=== PATIENT | male | born 1970 | race Caucasian/White ===

== ENCOUNTER 2021-01-23 08:49 | Observation (INO) | payer BC ==
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
[2021-01-23] MEDS ORDERED: Lactated Ringers 1,000 ML IV SCH ×2 (10:00→12:45)
[2021-01-23] MEDS ORDERED: Propofol 200 MG/20 ML SDV ONE ×5 (10:46→11:37)
--- NOTE | 2021-01-23 12:17 | PCM.POSTAN ---
POST ANESTHESIA ASSESSMENT - MENTAL STATUS Mental Status: Alert, Oriented - VITAL SIGNS Vital Signs: Last Vital Signs Temp 98.6 F 01/23/21 11:54 Pulse 127 H 01/23/21 12:05 Resp 14 01/23/21 12:05 BP 88/62 L 01/23/21 12:05 Pulse Ox 95 01/23/21 12:05 - RESPIRATORY Respiratory Status: Respiratory Rate WNL, Airway Patent, O2 Saturation Stable - CARDIOVASCULAR CV Status: Blood Pressure Stable - GASTROINTESTINAL GI Status: No Symptoms - POST OP HYDRATION Hydration Status: Adequate & Stable
--- NOTE | 2021-01-23 12:23 | PCM.OPNOTE ---
- General Post-Op/Procedure Note Date of Surgery/Procedure: 01/23/21 Operative Procedure(s): Colonoscopy with polypectomies and biopsies Findings: Poor bowel prep Colon polyps rectal mass Dictation number [id number] Pre Op Diagnosis: Constipation and blood when he wipes Post-Op Diagnosis: Colon polyps. rectal mass Anesthesia Technique: MAC Primary Surgeon: Felice Ji Pathology: Colon polyps Rectal mass Complications: None Condition: Good Free Text/Narrative:: Intake & Output 01/22/21 01/23/21 01/23/21 22:59 06:59 14:59 Intake Total 1400 Balance 1400 PT with A fib during the case
--- NOTE | 2021-01-23 12:30 | PCM.POSTAN ---
POST ANESTHESIA ASSESSMENT - MENTAL STATUS Mental Status: Alert, Oriented - VITAL SIGNS Vital Signs: Last Vital Signs Temp 37 C 01/23/21 11:54 Pulse 145 H 01/23/21 12:10 Resp 17 01/23/21 12:10 BP 99/60 01/23/21 12:10 Pulse Ox 95 01/23/21 12:10 - RESPIRATORY Respiratory Status: Respiratory Rate WNL, Airway Patent, O2 Saturation Stable - CARDIOVASCULAR CV Status: Blood Pressure Stable (Patient is in new onset A-Fib) - GASTROINTESTINAL GI Status: No Symptoms - POST OP HYDRATION Hydration Status: Adequate & Stable
--- NOTE | 2021-01-23 12:37 | PCM.SN.2 ---
- Free Text/Narrative Note: Patient connected to ECG in or and appeared to have sinus tachycardia which correlated with patients extreme anxiety for procedure and possible diagnosis. However, as rate slowed slightly with sedation rhythm appeared to be ST with Frequent PAC or atrial fib/flutter. EKG in recovery confirmed atrial fib for which patient was unaware. Discussed care with Dr. Almonte who recommends having hospitalist see patient.
--- NOTE | 2021-01-23 13:20 | PCM.SN.2 ---
- Free Text/Narrative Note: Case discussed with Dr. Ryan Ji who states he will admit patient to hospital with telemetry (in ICU) for rate control and management of new onset A- Fib.
[2021-01-23 15:51] LABS: BLOOD UREA NITROGEN,BUN 8 mg/dL (7.0-18.0); CARBON DIOXIDE,CO2 24.9 mmol/L (21.0-32.0); CHLORIDE,CL 103 mmol/L (98-107); GLUCOSE RANDOM 136 mg/dL (74-106); POTASSIUM,K 3.6 mmol/L (3.5-5.1); SODIUM,NA 138 mmol/L (136-148)
--- NOTE | 2021-01-23 15:57 | CR ---
INDICATION: new onset A-Fib. 23-nov-2020 TECHNIQUE: Chest 1 view. COMPARISON: 11/23/20 FINDINGS: Cardiovascular and mediastinum: Heart size and vasculature are normal in caliber and appearance. Mediastinum is within normal limits. Lungs and pleural space: Lungs are clear. No sign of infiltrate or mass. No sign of pleural effusion. No pneumothorax. Bones and soft tissues: No significant findings. IMPRESSION: Unremarkable chest. Dictated by: Bernardino Mercer MD @ 01/23/2021 15:54:45 (Electronically Signed)
--- NOTE | 2021-01-23 16:38 | OR ---
SURGEON: CAROL MCKINNEY MD DATE OF PROCEDURE: 01/23/2021 PREOPERATIVE DIAGNOSES: Constipation and occasional bloody wipes. POSTOPERATIVE DIAGNOSES: 1. Colon polyps. 2. Nearly circumferential rectal mass, likely cancerous. PROCEDURES PERFORMED: 1. Colonoscopy. 2. Hot snare polypectomy. 3. Cold biopsy polypectomy. PRIMARY SURGEON: Carol Mckinney MD ANESTHESIA: General. EXTENT OF THE COLONOSCOPY: To the cecum. BOWEL PREP: Poor. REASON FOR PROCEDURE: Patient is a pleasant 50-year-old gentleman who has never had a colonoscopy before. He says occasionally he has some blood when he wipes. He denies any recent changes in his bowel habits, although he says for the last year to year and a half, he has had issue with constipation. He says he will not have a bowel movement for several days, then have five or six bowel movements that day, and then go another three or four days without having a bowel movement. He says that his paternal aunt and he thinks his paternal grandfather had colon cancer. PROCEDURE IN DETAIL: Physical examination was performed. The major risks and benefits associated with the procedure were explained to the patient in detail. The patient verbalized understanding and agreement of the same. The patient was then connected to the appropriate monitoring devices and IV started. EKG, pulse, pulse oximetry, blood pressure, and capnography were monitored throughout the entire procedure. Continuous oxygen and sedation were provided by the anesthesiologist. The patient was placed in left lateral decubitus position. Sedation was began. After adequate sedation was achieved, a digital rectal exam was performed. The patient did have what felt like a hard mass right past the anal verge. This seemed to be more on the prostate side. Now, Olympus colonoscope was inserted into the rectum. Right a way we came up to a nearly circumferential mass. I was able to pass it. The scope was continued to advance to the cecum. The patient did have a somewhat poor bowel prep, still had a quite a bit of retained stool. I did take a picture of the cecal cap. Scope was then slowly withdrawn in a somewhat circular fashion looking at the color, texture, anatomy, and integrity of the mucosa from the cecum to the anal canal. Again, I spent quite a bit of time with suction irrigation, trying to get the best views of the mucosa, however, due to the poor bowel prep even with copious irrigation, i could have missed a smaller to medium sized polyp or lesion. Patient did have a small diminutive polyp in the ascending colon. This was removed with cold biopsy polypectomy. There was good hemostasis. It was completely removed. Scope was continued to be withdrawn. The patient had another polyp in the transverse colon right before the splenic flexure at about 90 cm. This was removed with hot snare polypectomy. The mucosal defect was closed with a Resolution clip. Scope was continued to be withdrawn. The patient again had a nearly circumferential lesion in the rectum. It appeared to begin about 2 to 3 cm in from the anal verge and extended up to about 15 cm. I did do multiple biopsies of this area. Scope was then removed and procedure was terminated. ENDOSCOPIC DIAGNOSES: 1. Colon polyps. 2. Nearly circumferential rectal mass, likely cancerous. RECOMMENDATIONS: I did go over with the patient and his the findings. I went over that very likely this is cancer, but we would wait for pathology official results. I did go over that we will need to do some further imaging, and he would be refer to Colorectal Surgery. I answered all of the patient's questions. JASON YOO /[id number] SCOTT
[2021-01-23] MEDS ORDERED: Magnesium Sulfate/Water 2 GM/50 ML Premix Bag IV ONE (17:08)
[2021-01-23] MEDS ORDERED: Potassium Chloride 20 MEQ Tab.ER PO ONE (17:08)
[2021-01-23] MEDS ORDERED: Magnesium Sulfate/Water 2 GM in Premix Bag 1 BAG IV ONE (17:15)
[2021-01-23] MEDS ORDERED: Glucagon,Human Recombinant 1 MG Vial IM PRN (17:17)
[2021-01-23] MEDS ORDERED: 50% Dextrose in Water 50 ML Syringe IVPUSH PRN (17:17)
[2021-01-23] MEDS ORDERED: Sodium Chloride 0.9% 1,000 ML IV ONE (17:40)
[2021-01-23] MEDS ORDERED: Diltiazem 25 MG/5 ML SDV IVPUSH PRN (17:40)
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
[2021-01-23] MEDS ORDERED: Digoxin 500 MCG/2 ML Amp IVPUSH ONE (17:48)
[2021-01-23] MEDS: Rosuvastatin 10 MG Tab PO SCH (20:03)
[2021-01-24 07:09] LABS: BLOOD UREA NITROGEN,BUN 9 mg/dL (7.0-18.0); CARBON DIOXIDE,CO2 24.7 mmol/L (21.0-32.0); CHLORIDE,CL 107 mmol/L (98-107); GLUCOSE RANDOM 105 mg/dL (74-106); POTASSIUM,K 4.1 mmol/L (3.5-5.1); SODIUM,NA 141 mmol/L (136-148)
--- NOTE | 2021-01-24 07:20 | PN ---
The patient did tolerate his colonoscopy. During the case, the patient was noted to have some new onset atrial fib. He was tachy into the 130s and 140s. Anesthesia did consult Medicine Services. The hospitalist did want to admit the patient to the ICU for rate control of his A Fib. I did see patient in ICU, he is doing well. He has no complaints of procedure. Again, I went over with the patient that he did have a rectal mass. I went over he can see me next week to go over the pathology and to discuss the treatment of it. I answered his questions about the procedure. Cares of patient per Medicine Team for his atrial fibrillation. JASON / FREDO /[id number] [email or web address]
[2021-01-24] MEDS: Insulin Aspart 100 Units/ML 3 ML Pen SUBCUT SCH ×3 (08:02→17:41)
[2021-01-24] MEDS ORDERED: Verapamil 240 MG Tab.ER PO SCH (09:45)
--- NOTE | 2021-01-24 12:43 | PCM.PN ---
- General Info Date of Service: 01/24/21 - Review of Systems Systems Review Comment:: denies any blood in stool, no palpitations, no chest pain - Patient Data Vitals - Most Recent: Last Vital Signs Temp 37.3 C 01/24/21 07:00 Pulse 107 H 01/24/21 11:00 Resp 19 01/24/21 11:00 BP 128/79 01/24/21 11:00 Pulse Ox 92 L 01/24/21 11:00 Weight - Most Recent: 126.099 kg I&O - Last 24 Hours: Intake & Output 01/23/21 01/24/21 01/24/21 22:59 06:59 14:59 Intake Total 400 Output Total 525 Balance -125 Lab Results Last 24 Hours: Laboratory Results - last 24 hr 01/23/21 01/23/21 01/23/21 Range/Units 15:22 15:22 15:22 WBC 8.43 (4.0-11.0) K/uL RBC 4.59 (4.50-5.90) M/uL Hgb 14.7 (13.0-17.0) g/dL Hct 42.7 (38.0-50.0) % MCV 93.0 (80.0-98.0) fL MCH 32.0 (27.0-32.0) pg MCHC 34.4 (31.0-37.0) g/dL RDW Std Deviation 44.8 (28.0-62.0) fl RDW Coeff of Mahi 13 (11.0-15.0) % Plt Count 269 (150-400) K/uL MPV 10.00 (7.40-12.00) fL Neut % (Auto) 56.2 (48.0-80.0) % Lymph % (Auto) 32.7 (16.0-40.0) % [place] % (Auto) 8.7 (0.0-15.0) % Eos % (Auto) 2.0 (0.0-7.0) % Baso % (Auto) 0.4 (0.0-1.5) % Neut # (Auto) 4.7 (1.4-5.7) K/uL Lymph # (Auto) 2.8 H (0.6-2.4) K/uL [place] # (Auto) 0.7 (0.0-0.8) K/uL Eos # (Auto) 0.2 (0.0-0.7) K/uL Baso # (Auto) 0.0 (0.0-0.1) K/uL Nucleated RBC % 0.0 /100WBC Nucleated RBCs # 0 K/uL INR 0.95 Sodium 138 (136-148) mmol/L Potassium 3.6 (3.5-5.1) mmol/L Chloride 103 (98-107) mmol/L Carbon Dioxide 24.9 (21.0-32.0) mmol/L BUN 8 (7.0-18.0) mg/dL Creatinine 0.9 (0.8-1.3) mg/dL Est Cr Clr Drug Dosing 119.22 mL/min Estimated GFR (MDRD) > 60.0 ml/min Glucose 136 H (74-106) mg/dL POC Glucose (70-99) mg/dL Calcium 9.0 (8.5-10.1) mg/dL Magnesium 1.7 L (1.8-2.4) mg/dL Total Bilirubin 0.3 (0.2-1.0) mg/dL AST 24 (15-37) IU/L ALT 37 (14-63) IU/L Alkaline Phosphatase 61 (46-116) U/L Total Protein 7.0 (6.4-8.2) g/dL Albumin 3.3 L (3.4-5.0) g/dL Globulin 3.7 (2.6-4.0) g/dL Albumin/Globulin Ratio 0.9 (0.9-1.6) 01/24/21 01/24/21 01/24/21 Range/Units 05:52 05:52 07:49 WBC 7.45 (4.0-11.0) K/uL RBC 4.46 L (4.50-5.90) M/uL Hgb 14.1 (13.0-17.0) g/dL Hct 42.2 (38.0-50.0) % MCV 94.6 (80.0-98.0) fL MCH 31.6 (27.0-32.0) pg MCHC 33.4 (31.0-37.0) g/dL RDW Std Deviation 46.7 (28.0-62.0) fl RDW Coeff of Mahi 14 (11.0-15.0) % Plt Count 253 (150-400) K/uL MPV 10.60 (7.40-12.00) fL Neut % (Auto) 52.7 (48.0-80.0) % Lymph % (Auto) 30.3 (16.0-40.0) % [place] % (Auto) 12.2 (0.0-15.0) % Eos % (Auto) 4.3 (0.0-7.0) % Baso % (Auto) 0.5 (0.0-1.5) % Neut # (Auto) 3.9 (1.4-5.7) K/uL Lymph # (Auto) 2.3 (0.6-2.4) K/uL [place] # (Auto) 0.9 H (0.0-0.8) K/uL Eos # (Auto) 0.3 (0.0-0.7) K/uL Baso # (Auto) 0.0 (0.0-0.1) K/uL Nucleated RBC % 0.0 /100WBC Nucleated RBCs # 0 K/uL INR Sodium 141 (136-148) mmol/L Potassium 4.1 (3.5-5.1) mmol/L Chloride 107 (98-107) mmol/L Carbon Dioxide 24.7 (21.0-32.0) mmol/L BUN 9 (7.0-18.0) mg/dL Creatinine 0.7 L (0.8-1.3) mg/dL Est Cr Clr Drug Dosing 153.28 mL/min Estimated GFR (MDRD) > 60.0 ml/min Glucose 105 (74-106) mg/dL POC Glucose 115 H (70-99) mg/dL Calcium 8.5 (8.5-10.1) mg/dL Magnesium 2.2 (1.8-2.4) mg/dL Total Bilirubin (0.2-1.0) mg/dL AST (15-37) IU/L ALT (14-63) IU/L Alkaline Phosphatase (46-116) U/L Total Protein (6.4-8.2) g/dL Albumin (3.4-5.0) g/dL Globulin (2.6-4.0) g/dL Albumin/Globulin Ratio (0.9-1.6) 01/24/ Range/Units 12:23 WBC (4.0-11.0) K/uL RBC (4.50-5.90) M/uL Hgb (13.0-17.0) g/dL Hct (38.0-50.0) % MCV (80.0-98.0) fL MCH (27.0-32.0) pg MCHC (31.0-37.0) g/dL RDW Std Deviation (28.0-62.0) fl RDW Coeff of Mahi (11.0-15.0) % Plt Count (150-400) K/uL MPV (7.40-12.00) fL Neut % (Auto) (48.0-80.0) % Lymph % (Auto) (16.0-40.0) % [place] % (Auto) (0.0-15.0) % Eos % (Auto) (0.0-7.0) % Baso % (Auto) (0.0-1.5) % Neut # (Auto) (1.4-5.7) K/uL Lymph # (Auto) (0.6-2.4) K/uL [place] # (Auto) (0.0-0.8) K/uL Eos # (Auto) (0.0-0.7) K/uL Baso # (Auto) (0.0-0.1) K/uL Nucleated RBC % /100WBC Nucleated RBCs # K/uL INR Sodium (136-148) mmol/L Potassium (3.5-5.1) mmol/L Chloride (98-107) mmol/L Carbon Dioxide (21.0-32.0) mmol/L BUN (7.0-18.0) mg/dL Creatinine (0.8-1.3) mg/dL Est Cr Clr Drug Dosing mL/min Estimated GFR (MDRD) ml/min Glucose (74-106) mg/dL POC Glucose 105 H (70-99) mg/dL Calcium (8.5-10.1) mg/dL Magnesium (1.8-2.4) mg/dL Total Bilirubin (0.2-1.0) mg/dL AST (15-37) IU/L ALT (14-63) IU/L Alkaline Phosphatase (46-116) U/L Total Protein (6.4-8.2) g/dL Albumin (3.4-5.0) g/dL Globulin (2.6-4.0) g/dL Albumin/Globulin Ratio (0.9-1.6) Med Orders - Current: Current Medications Apixaban (Apixaban 5 Mg Tab) 5 mg PO Q12H [facility] Dextrose/Water (50% Dextrose In Water 50 Ml Syringe) 50 ml IVPUSH ASDIRECTED PRN PRN Reason: Hypoglycemia Diltiazem HCl (Diltiazem 25 Mg/5 Ml Sdv) 10 mg IVPUSH Q3H PRN PRN Reason: HR above 100 Docusate Sodium (Docusate Sodium 100 Mg Cap) 100 mg PO DAILY TERRY Glucagon (Glucagon,Human Recombinant 1 Mg Vial) 1 mg IM ASDIRECTED PRN PRN Reason: Hypoglycemia Lactated Ringer's (Ringers, Lactated) 1,000 mls @ 125 mls/hr IV ASDIRECTED TERRY Last Admin: 01/23/21 09:20 Dose: 125 mls/hr Documented by: Insulin Aspart (Insulin Aspart 100 Units/Ml 3 Ml Pen) 0 unit SUBCUT TIDAC [facility]; Protocol Last Admin: 01/24/21 12:29 Dose: Not Given Documented by: Rosuvastatin Calcium (Rosuvastatin 10 Mg Tab) 20 mg PO BEDTIME [facility] Last Admin: 01/23/21 20:03 Dose: 20 mg Documented by: Verapamil HCl (Verapamil 40 Mg Tab) 80 mg PO Q8H TERRY Discontinued Medications Digoxin (Digoxin 500 Mcg/2 Ml Amp) 250 mcg IVPUSH ONETIME ONE Stop: 01/23/21 17:49 Last Admin: 01/23/21 17:56 Dose: 250 mcg Documented by: Magnesium Sulfate 2 gm/ Premix 50 mls @ 25 mls/hr IV ONETIME ONE Stop: 01/23/21 19:14 Last Admin: 01/23/21 17:42 Dose: 25 mls/hr Documented by: Sodium Chloride (Normal Saline) 1,000 mls @ 999 mls/hr IV .Bolus ONE Stop: 01/23/21 18:40 Last Admin: 01/23/21 17:51 Dose: 999 mls/hr Documented by: Potassium Chloride (Potassium Chloride 20 Meq Tab.Er) 40 meq PO ONETIME ONE Stop: 01/23/21 17:09 Last Admin: 01/23/21 17:42 Dose: 40 meq Documented by: Propofol (Propofol 200 Mg/20 Ml Sdv) Confirm Administered Dose 200 mg .ROUTE .STK-MED ONE Stop: 01/23/21 10:47 Propofol (Propofol 200 Mg/20 Ml Sdv) Confirm Administered Dose 200 mg .ROUTE .STK-MED ONE Stop: 01/23/21 10:47 Propofol (Propofol 200 Mg/20 Ml Sdv) Confirm Administered Dose 200 mg .ROUTE .STK-MED ONE Stop: 01/23/21 11:09 Propofol (Propofol 200 Mg/20 Ml Sdv) Confirm Administered Dose 200 mg .ROUTE .STK-MED ONE Stop: 01/23/21 11:16 Propofol (Propofol 200 Mg/20 Ml Sdv) Confirm Administered Dose 400 mg .ROUTE .STK-MED ONE Stop: 01/23/21 11:38 Verapamil HCl (Verapamil 240 Mg Tab.Er) 120 mg PO DAILY TERRY Verapamil HCl (Verapamil 40 Mg Tab) 40 mg PO Q8H TERRY Last Admin: 01/24/21 10:09 Dose: 40 mg Documented by: Verapamil HCl (Verapamil 40 Mg Tab) 40 mg PO ONETIME ONE Stop: 01/24/21 12:20 Last Admin: 01/24/21 12:31 Dose: 40 mg Documented by: - Exam General: Alert, Oriented Neck: Supple Lungs: Clear to Auscultation, Normal Respiratory Effort Cardiovascular: Irregular Rhythm, Tachycardia GI/Abdominal Exam: Soft, Non-Tender, No Distention Extremities: Non-Tender, No Pedal Edema Skin: Warm, Dry, Intact Neurological: No New Focal Deficit - Patient Data Lab Results Last 24 hrs: Laboratory Results - last 24 hr 01/23/21 01/23/21 01/23/21 Range/Units 15:22 15:22 15:22 WBC 8.43 (4.0-11.0) K/uL RBC 4.59 (4.50-5.90) M/uL Hgb 14.7 (13.0-17.0) g/dL Hct 42.7 (38.0-50.0) % MCV 93.0 (80.0-98.0) fL MCH 32.0 (27.0-32.0) pg MCHC 34.4 (31.0-37.0) g/dL RDW Std Deviation 44.8 (28.0-62.0) fl RDW Coeff of Mahi 13 (11.0-15.0) % Plt Count 269 (150-400) K/uL MPV 10.00 (7.40-12.00) fL Neut % (Auto) 56.2 (48.0-80.0) % Lymph % (Auto) 32.7 (16.0-40.0) % [place] % (Auto) 8.7 (0.0-15.0) % Eos % (Auto) 2.0 (0.0-7.0) % Baso % (Auto) 0.4 (0.0-1.5) % Neut # (Auto) 4.7 (1.4-5.7) K/uL Lymph # (Auto) 2.8 H (0.6-2.4) K/uL [place] # (Auto) 0.7 (0.0-0.8) K/uL Eos # (Auto) 0.2 (0.0-0.7) K/uL Baso # (Auto) 0.0 (0.0-0.1) K/uL Nucleated RBC % 0.0 /100WBC Nucleated RBCs # 0 K/uL INR 0.95 Sodium 138 (136-148) mmol/L Potassium 3.6 (3.5-5.1) mmol/L Chloride 103 (98-107) mmol/L Carbon Dioxide 24.9 (21.0-32.0) mmol/L BUN 8 (7.0-18.0) mg/dL Creatinine 0.9 (0.8-1.3) mg/dL Est Cr Clr Drug Dosing 119.22 mL/min Estimated GFR (MDRD) > 60.0 ml/min Glucose 136 H (74-106) mg/dL POC Glucose (70-99) mg/dL Calcium 9.0 (8.5-10.1) mg/dL Magnesium 1.7 L (1.8-2.4) mg/dL Total Bilirubin 0.3 (0.2-1.0) mg/dL AST 24 (15-37) IU/L ALT 37 (14-63) IU/L Alkaline Phosphatase 61 (46-116) U/L Total Protein 7.0 (6.4-8.2) g/dL Albumin 3.3 L (3.4-5.0) g/dL Globulin 3.7 (2.6-4.0) g/dL Albumin/Globulin Ratio 0.9 (0.9-1.6) 01/24/21 01/24/21 01/24/21 Range/Units 05:52 05:52 07:49 WBC 7.45 (4.0-11.0) K/uL RBC 4.46 L (4.50-5.90) M/uL Hgb 14.1 (13.0-17.0) g/dL Hct 42.2 (38.0-50.0) % MCV 94.6 (80.0-98.0) fL MCH 31.6 (27.0-32.0) pg MCHC 33.4 (31.0-37.0) g/dL RDW Std Deviation 46.7 (28.0-62.0) fl RDW Coeff of Mahi 14 (11.0-15.0) % Plt Count 253 (150-400) K/uL MPV 10.60 (7.40-12.00) fL Neut % (Auto) 52.7 (48.0-80.0) % Lymph % (Auto) 30.3 (16.0-40.0) % [place] % (Auto) 12.2 (0.0-15.0) % Eos % (Auto) 4.3 (0.0-7.0) % Baso % (Auto) 0.5 (0.0-1.5) % Neut # (Auto) 3.9 (1.4-5.7) K/uL Lymph # (Auto) 2.3 (0.6-2.4) K/uL [place] # (Auto) 0.9 H (0.0-0.8) K/uL Eos # (Auto) 0.3 (0.0-0.7) K/uL Baso # (Auto) 0.0 (0.0-0.1) K/uL Nucleated RBC % 0.0 /100WBC Nucleated RBCs # 0 K/uL INR Sodium 141 (136-148) mmol/L Potassium 4.1 (3.5-5.1) mmol/L Chloride 107 (98-107) mmol/L Carbon Dioxide 24.7 (21.0-32.0) mmol/L BUN 9 (7.0-18.0) mg/dL Creatinine 0.7 L (0.8-1.3) mg/dL Est Cr Clr Drug Dosing 153.28 mL/min Estimated GFR (MDRD) > 60.0 ml/min Glucose 105 (74-106) mg/dL POC Glucose 115 H (70-99) mg/dL Calcium 8.5 (8.5-10.1) mg/dL Magnesium 2.2 (1.8-2.4) mg/dL Total Bilirubin (0.2-1.0) mg/dL AST (15-37) IU/L ALT (14-63) IU/L Alkaline Phosphatase (46-116) U/L Total Protein (6.4-8.2) g/dL Albumin (3.4-5.0) g/dL Globulin (2.6-4.0) g/dL Albumin/Globulin Ratio (0.9-1.6) 01/24/21 Range/Units 12:23 WBC (4.0-11.0) K/uL RBC (4.50-5.90) M/uL Hgb (13.0-17.0) g/dL Hct (38.0-50.0) % MCV (80.0-98.0) fL MCH (27.0-32.0) pg MCHC (31.0-37.0) g/dL RDW Std Deviation (28.0-62.0) fl RDW Coeff of Mahi (11.0-15.0) % Plt Count (150-400) K/uL MPV (7.40-12.00) fL Neut % (Auto) (48.0-80.0) % Lymph % (Auto) (16.0-40.0) % [place] % (Auto) (0.0-15.0) % Eos % (Auto) (0.0-7.0) % Baso % (Auto) (0.0-1.5) % Neut # (Auto) (1.4-5.7) K/uL Lymph # (Auto) (0.6-2.4) K/uL [place] # (Auto) (0.0-0.8) K/uL Eos # (Auto) (0.0-0.7) K/uL Baso # (Auto) (0.0-0.1) K/uL Nucleated RBC % /100WBC Nucleated RBCs # K/uL INR Sodium (136-148) mmol/L Potassium (3.5-5.1) mmol/L Chloride (98-107) mmol/L Carbon Dioxide (21.0-32.0) mmol/L BUN (7.0-18.0) mg/dL Creatinine (0.8-1.3) mg/dL Est Cr Clr Drug Dosing mL/min Estimated GFR (MDRD) ml/min Glucose (74-106) mg/dL POC Glucose 105 H (70-99) mg/dL Calcium (8.5-10.1) mg/dL Magnesium (1.8-2.4) mg/dL Total Bilirubin (0.2-1.0) mg/dL AST (15-37) IU/L ALT (14-63) IU/L Alkaline Phosphatase (46-116) U/L Total Protein (6.4-8.2) g/dL Albumin (3.4-5.0) g/dL Globulin (2.6-4.0) g/dL Albumin/Globulin Ratio (0.9-1.6) Result Diagrams: 01/24/21 05:52 01/24/21 05:52 Sepsis Event Note - Evaluation Sepsis Screening Result: No Definite Risk - Focused Exam Vital Signs: Vital Signs Temp Pulse Resp BP Pulse Ox 01/24/21 11:00 107 H 19 128/79 92 L 01/24/21 10:00 111 H 17 128/63 96 01/24/21 09:00 113 H 20 119/88 95 01/24/21 08:00 106 H 24 H 139/103 H 95 01/24/21 07:00 37.3 C 90 18 128/84 94 L 01/24/21 06:00 110 H 14 141/88 H 97 01/24/21 05:00 100 18 133/78 94 L 01/24/21 04:00 36.7 C 105 H 22 H 123/81 94 L 01/24/21 03:00 91 20 115/84 92 L 01/24/21 02:00 97 13 112/76 92 L 01/24/21 01:00 88 20 122/72 94 L - Problem List & Annotations (1) Rapid atrial fibrillation SNOMED Code(s): 397806785 Code(s): I48.91 - UNSPECIFIED ATRIAL FIBRILLATION Status: Acute Current Visit: Yes (2) Mass in rectum SNOMED Code(s): 412877230 Code(s): K62.89 - OTHER SPECIFIED DISEASES OF ANUS AND RECTUM Status: Acute Current Visit: Yes - Problem List Review Problem List Initiated/Reviewed/Updated: Yes - My Orders Last 24 Hours: My Active Orders 01/23/21 15:00 Admission Status [Patient Status] [ADT] Routine 01/23/21 Dinner ADA Diabetic [[employer] Diet] [DIET] 01/23/21 17:17 Blood Glucose Check, Bedside [RC] TIDMEALS Dextrose 50% in Water 50 ml IVPUSH ASDIRECTED PRN Glucagon,Human Recombinant [GlucaGen] 1 mg IM ASDIRECTED PRN 01/23/21 17:40 Diltiazem 10 mg IVPUSH Q3H PRN 01/23/21 21:00 Rosuvastatin [Crestor] 20 mg PO BEDTIME 01/24/21 07:30 Insulin Aspart [NovoLOG] See Protocol SUBCUT TIDAC 01/24/21 12:45 Apixaban [Eliquis] 5 mg PO Q12H Docusate Sodium [Colace] 100 mg PO DAILY 01/24/21 16:00 Verapamil [Calan] 80 mg PO Q8H 01/24/21 17:46 Echo Comp wo Cont [US] Routine - Plan Plan:: 50 yo male with new onset atrial fibrillation discovered during colonoscopy A.fib with RVR: blood pressure has improved, will resume verapamil and titrate for rate control, after discussing risk and benefits of anticoagulation will start Eliquis. DM: diabetic diet, ssi
[2021-01-24] MEDS: Apixaban 5 MG Tab PO SCH (12:59)
[2021-01-24] MEDS: Docusate Sodium 100 MG Cap PO SCH (12:59)
--- NOTE | 2021-01-24 16:30 | PN ---
SUBJECTIVE: Patient was seen. Patient says he is feeling good. He denies any chest pain or shortness of breath. He says he is tolerating his diet well. He has been passing a lot of flatus, but no bowel movements yet. He has not noticed any blood from his rectum when he wipes. Patient continues to be in atrial fibrillation. I talked to the hospitalist who is adjusting his medications. We have also discussed about anticoagulation. I went over this would be okay from the biopsy standpoint, but again this patient has a friable mass in the rectum that could potentially start bleeding and to consider this when discussing the risks and benefits. It sounds like the patient has already spoken with the hospitalist and is aware of the risks and goals and wants to start the anticoagulation. We also have him scheduled for his CT scan as an outpatient for further workup of his rectal mass. Again, I answered the patient's questions. We will see him next week. Hopefully, by then, pathology will be back of the rectal mass. JASON YOO /[id number] MTDD
[2021-01-24 19:17] VITALS: PULSE 97
[2021-01-24] MEDS: Rosuvastatin 10 MG Tab PO SCH (20:09)
[2021-01-25] MEDS: Apixaban 5 MG Tab PO SCH (00:35)
[2021-01-25] MEDS: Insulin Aspart 100 Units/ML 3 ML Pen SUBCUT SCH (07:43)
[2021-01-25] MEDS: Docusate Sodium 100 MG Cap PO SCH (08:37)
--- NOTE | 2021-01-25 08:53 | PCM.DCSUM1 ---
Discharge Summary - Discharge Data Discharge Date: 01/25/21 Discharge Disposition: Home, Self-Care 01 Condition: Good - Referral to Home Health Primary Care Physician: Jamil Ghosh MD - Discharge Diagnosis/Problem(s) (1) Rapid atrial fibrillation SNOMED Code(s): 153307492 ICD Code: I48.91 - UNSPECIFIED ATRIAL FIBRILLATION Status: Acute Current Visit: Yes (2) Mass in rectum SNOMED Code(s): 998365308 ICD Code: K62.89 - OTHER SPECIFIED DISEASES OF ANUS AND RECTUM Status: Acute Current Visit: Yes - Patient Summary/Data Operative Procedure(s) Performed: Colonoscopy with polypectomies and biopsies Hospital Course: 50 yo male with pmh of DM and HTN who was admitted for atrial fibrillation with RVR which was discovered during an elective colonoscopy. He was also found to have a rectal mass on colonoscopy. And admission to the ICU he was given fluid boluses for low blood pressures. His verapamil was titrated up for better heart rate control. His losartan and HCTZ were discontinued due to boderline low blood pressures. We discussed anticoagulation for his atrial fibrillation. He does have increase risk of bleeding due to his rectal mass. Patient has agreed to start Eliquis. Echocardiogram reported EF of 55%. Patient is requesting discharge. He is to to follow up with Dr. Felice Ji and Dr. Ghosh. - Patient Instructions Diet: Usual Diet as Tolerated Activity: Rest and Relax Today Driving: Do Not Drive Showering/Bathing: May Shower Notify Provider of: Fever, Increased Pain, Nausea and/or Vomiting - Discharge Plan Prescriptions/Med Rec: Apixaban [Eliquis] 5 mg PO Q12H #30 tablet Verapamil HCl [Verapamil ER] 240 mg PO DAILY #30 cap24h.pel Home Medications: Home Meds Budesonide/Formoterol Fumarate [Budesonide-Formoterol 80-4.5] 2 puff INH BID 12/17/20 [History] Empagliflozin [Jardiance] 10 mg PO DAILY 12/17/20 [History] Ibuprofen 800 mg PO TID PRN 12/17/20 [History] Omeprazole 20 mg PO DAILY 12/17/20 [History] Rosuvastatin [Crestor] 20 mg PO DAILY 12/17/20 [History] Sildenafil Citrate 20 mg PO ASDIRECTED PRN 12/17/20 [History] metFORMIN HCl [Metformin HCl] 1,000 mg PO BIDMEALS 12/17/20 [History] Apixaban [Eliquis] 5 mg PO Q12H #30 tablet 01/25/21 [Rx] Verapamil HCl [Verapamil ER] 240 mg PO DAILY #30 cap24h.pel 01/25/21 [Rx] Patient Handouts: Atrial Fibrillation, [id number] Referrals: Felice Ji MD [Physician] - Jamil Ghosh MD [Primary Care Provider] - 01/31/21 1:30 pm - Discharge Summary/Plan Comment DC Time >30 min.: No Total # of Minutes for Discharge Time: 20 - Patient Data Vitals - Most Recent: Last Vital Signs Temp 36.3 C 01/25/21 08:00 Pulse 97 01/24/21 19:00 Resp 24 H 01/25/21 08:00 BP 124/85 01/25/21 08:00 Pulse Ox 93 L 01/25/21 08:00 Weight - Most Recent: 126.099 kg I&O - Last 24 hours: Intake & Output 01/24/21 01/25/21 01/25/21 22:59 06:59 14:59 Intake Total 2000 950 Output Total 1100 1250 Balance 900 -300 Lab Results - Last 24 hrs: Laboratory Results - last 24 hr 01/24/21 01/24/21 01/25/21 Range/Units 12:23 17:13 07:30 POC Glucose 105 H 111 H 108 H (70-99) mg/dL Med Orders - Current: Current Medications Apixaban (Apixaban 5 Mg Tab) 5 mg PO Q12H [facility] Last Admin: 01/25/21 00:35 Dose: 5 mg Documented by: Dextrose/Water (50% Dextrose In Water 50 Ml Syringe) 50 ml IVPUSH ASDIRECTED PRN PRN Reason: Hypoglycemia Diltiazem HCl (Diltiazem 25 Mg/5 Ml Sdv) 10 mg IVPUSH Q3H PRN PRN Reason: HR above 100 Docusate Sodium (Docusate Sodium 100 Mg Cap) 100 mg PO DAILY [facility] Last Admin: 01/25/21 08:37 Dose: 100 mg Documented by: Glucagon (Glucagon,Human Recombinant 1 Mg Vial) 1 mg IM ASDIRECTED PRN PRN Reason: Hypoglycemia Lactated Ringer's (Ringers, Lactated) 1,000 mls @ 125 mls/hr IV ASDIRECTED [facility] Last Admin: 01/23/21 09:20 Dose: 125 mls/hr Documented by: Insulin Aspart (Insulin Aspart 100 Units/Ml 3 Ml Pen) 0 unit SUBCUT TIDAC [facility]; Protocol Last Admin: 01/25/21 07:43 Dose: Not Given Documented by: Rosuvastatin Calcium (Rosuvastatin 10 Mg Tab) 20 mg PO BEDTIME [facility] Last Admin: 01/24/21 20:09 Dose: 20 mg Documented by: Verapamil HCl (Verapamil 40 Mg Tab) 80 mg PO Q8H [facility] Last Admin: 01/25/21 04:12 Dose: 80 mg Documented by: Discontinued Medications Digoxin (Digoxin 500 Mcg/2 Ml Amp) 250 mcg IVPUSH ONETIME ONE Stop: 01/23/21 17:49 Last Admin: 01/23/21 17:56 Dose: 250 mcg Documented by: Magnesium Sulfate 2 gm/ Premix 50 mls @ 25 mls/hr IV ONETIME ONE Stop: 01/23/21 19:14 Last Admin: 01/23/21 17:42 Dose: 25 mls/hr Documented by: Sodium Chloride (Normal Saline) 1,000 mls @ 999 mls/hr IV .Bolus ONE Stop: 01/23/21 18:40 Last Admin: 01/23/21 17:51 Dose: 999 mls/hr Documented by: Potassium Chloride (Potassium Chloride 20 Meq Tab.Er) 40 meq PO ONETIME ONE Stop: 01/23/21 17:09 Last Admin: 01/23/21 17:42 Dose: 40 meq Documented by: Propofol (Propofol 200 Mg/20 Ml Sdv) Confirm Administered Dose 200 mg .ROUTE .STK-MED ONE Stop: 01/23/21 10:47 Propofol (Propofol 200 Mg/20 Ml Sdv) Confirm Administered Dose 200 mg .ROUTE .STK-MED ONE Stop: 01/23/21 10:47 Propofol (Propofol 200 Mg/20 Ml Sdv) Confirm Administered Dose 200 mg .ROUTE .STK-MED ONE Stop: 01/23/21 11:09 Propofol (Propofol 200 Mg/20 Ml Sdv) Confirm Administered Dose 200 mg .ROUTE .STK-MED ONE Stop: 01/23/21 11:16 Propofol (Propofol 200 Mg/20 Ml Sdv) Confirm Administered Dose 400 mg .ROUTE .STK-MED ONE Stop: 01/23/21 11:38 Verapamil HCl (Verapamil 240 Mg Tab.Er) 120 mg PO DAILY TERRY Verapamil HCl (Verapamil 40 Mg Tab) 40 mg PO Q8H [facility] Last Admin: 01/24/21 10:09 Dose: 40 mg Documented by: Verapamil HCl (Verapamil 40 Mg Tab) 40 mg PO ONETIME ONE Stop: 01/24/21 12:20 Last Admin: 01/24/21 12:31 Dose: 40 mg Documented by: Verapamil HCl (Verapamil 40 Mg Tab) 80 mg PO Q8H TERRY
[2021-01-25 09:36] VITALS: BP 128/83
--- NOTE | 2021-01-25 13:33 | PN ---
The patient was seen this morning. He says things are going well. He has no complaints. It looks like his heart rate has been well controlled with his medications. He is still in atrial fibrillation. The patient says he is eating, tolerating diet well. He has been started on anticoagulation. I discussed with the patient again that he has to follow up in next week to go over pathology. We did get him scheduled for a CT scan because of his newly found rectal mass. We will also get him scheduled for followup with Colorectal Surgery. All the patient's questions were answered. JASON YOO /[id number]
--- NOTE | 2021-01-28 09:55 | ECHO ---
EXAM DATE: 01/23/21 PATIENT'S AGE: 50 The ECHO report has been scanned into [employer] and can be seen in this patient's EMR (Electronic Medical Record) under the REPORTS section. The report has also been scanned into PACS. SCOTT
== END 2021-01-25 09:35 | disposition home or self-care (01) ==
LOC: MW.SDS 08:49 → MW.ICU 13:32 → MW.SDS 15:00
PROVIDERS: ADMIT Internal Medicine; ATTEND Internal Medicine
DX: C20 Malignant neoplasm of rectum (principal); D12.2 Benign neoplasm of ascending colon; D12.3 Benign neoplasm of transverse colon; E11.9 Type 2 diabetes mellitus without complications; I10 Essential (primary) hypertension; F17.210 Nicotine dependence, cigarettes, uncomplicated; I48.91 Unspecified atrial fibrillation; E78.00 Pure hypercholesterolemia, unspecified; E66.9 Obesity, unspecified; Z79.899 Other long term (current) drug therapy; Z79.84 Long term (current) use of oral hypoglycemic drugs; Z98.890 Other specified postprocedural states
CPT/HCPCS: 36415; 45380; 45385; 71045; 80048; 80053; 82947; 83735; 85025; 85610; 93005; 93306; 96365; 96366; 96375; A9270; G0378; J1160; J2704; J3475; J7030; J7120; 00812

== ENCOUNTER 2021-03-12 07:18 | Day surgery (SDC) | payer BC ==
[~2021-03-12 07:18] MED LIST: Lactated Ringers 1,000 ML IV SCH
[2021-03-12] MEDS ORDERED: Ondansetron 4 MG/2 ML SDV IVPUSH PRN (07:25)
[2021-03-12] MEDS ORDERED: Metoclopramide 10 MG/2 ML SDV IVPUSH PRN (07:25)
[2021-03-12] MEDS ORDERED: Morphine 2 MG/ML SYRINGE IVPUSH PRN (07:25)
[2021-03-12] MEDS ORDERED: Albuterol 0.083% 2.5 MG/3 ML Neb Soln NEB PRN (07:25)
[2021-03-12] MEDS ORDERED: HYDROmorphone 1 MG/ML Syringe IVPUSH PRN (07:25)
[2021-03-12] MEDS ORDERED: fentaNYL 100 MCG/2 ML SDV IVPUSH PRN (07:25)
[2021-03-12] MEDS ORDERED: Naloxone 0.4 MG/ML SDV IVPUSH PRN (07:25)
[2021-03-12] MEDS ORDERED: ceFAZolin 2 GM in Premix Bag 1 BAG IV ONE (07:50)
[2021-03-12] MEDS ORDERED: Sodium Chloride 0.9% 10 ML Syringe FLUSH PRN (07:50)
[2021-03-12] MEDS ORDERED: Sodium Chloride 0.9% 2.5 ML Syringe FLUSH PRN (07:50)
[2021-03-12] MEDS ORDERED: Sodium Chloride 0.9% 20 ML SDV IV PRN (07:50)
[2021-03-12] MEDS ORDERED: fentaNYL 100 MCG/2 ML SDV ONE (08:15)
[2021-03-12] MEDS ORDERED: Midazolam 1 MG/ML 2 ML SDV ONE (08:15)
[2021-03-12] MEDS ORDERED: Propofol 200 MG/20 ML SDV ONE ×2 (08:17→08:58)
[2021-03-12] MEDS ORDERED: Heparin Sodium 100 Units/ML 3 ML Syringe ONE (08:44)
[2021-03-12] MEDS ORDERED: Bupivacaine 0.5% 10 ML SDV ONE (08:44)
[2021-03-12] MEDS ORDERED: Octyl 2-Cyanoacrylate 1 Tube ONE (08:45)
[2021-03-12] MEDS ORDERED: Iopamidol 408 MG/ML 20 ML SDV ONE (08:45)
[2021-03-12] MEDS ORDERED: Ketorolac 30 MG/ML SDV ONE (10:00)
[2021-03-12] MEDS ORDERED: Ondansetron 4 MG/2 ML SDV ONE (10:06)
[2021-03-12 10:38] VITALS: PULSE 75
[2021-03-12 11:29] LABS: BLOOD UREA NITROGEN,BUN 10 mg/dL (7.0-18.0); CARBON DIOXIDE,CO2 24.8 mmol/L (21.0-32.0); CHLORIDE,CL 104 mmol/L (98-107); GLUCOSE RANDOM 109 mg/dL (74-106); POTASSIUM,K 3.8 mmol/L (3.5-5.1); SODIUM,NA 141 mmol/L (136-148)
[2021-03-12 11:49] VITALS: BP 134/80
== END 2021-03-12 11:25 | disposition home or self-care (01) ==
LOC: MW.SDS 07:18
PROVIDERS: ATTEND Surgery
DX: C20 Malignant neoplasm of rectum (principal); J44.9 Chronic obstructive pulmonary disease, unspecified; E11.9 Type 2 diabetes mellitus without complications; K21.9 Gastro-esophageal reflux disease without esophagitis; E78.00 Pure hypercholesterolemia, unspecified; G43.909 Migraine, unspecified, not intractable, without status migrainosus; F17.210 Nicotine dependence, cigarettes, uncomplicated; I48.91 Unspecified atrial fibrillation; I10 Essential (primary) hypertension; K59.09 Other constipation; E66.9 Obesity, unspecified; Z79.899 Other long term (current) drug therapy; Z79.84 Long term (current) use of oral hypoglycemic drugs; Z98.890 Other specified postprocedural states; Z68.34 Body mass index [BMI] 34.0-34.9, adult
CPT/HCPCS: 36415; 36561; 71045; 76000; 80053; 82306; 82378; 85025; A9270; J0690; J1642; J1885; J2250; J2405; J2704; J3010; J3490; J7120; Q9966; 00532